=== PATIENT | female | born 1940 | race Caucasian/White ===

== ENCOUNTER → 2017-12-25 12:38 | Outpatient (CLI) | payer MEDICARE ==
[2015-05-21 09:25] VITALS: BMI 33.9
[~2017-12-25 12:38] MED LIST: ACETAMINOPHEN500 M1 PO; AZOR 10-40 MG T1 TAB PO; CALAN120 MG PO; COUMADIN5 MG PO; DIPHEDRYL25 MG PO; HYDROCODONE-APA1 TAB PO; LOVASTATIN40 MG PO; MELATONIN 3 MG1 TAB PO; MOBIC7.5 MG PO; PROPAFENONE HC300 MG PO; TENORMIN25 MG PO; TRAZODONE HCL50 MG PO; ZANTAC150 MG PO
== END | disposition home or self-care (01) ==
LOC: D.RAD 12:38
DX: R13.10 Dysphagia, unspecified (principal); K21.9 Gastro-esophageal reflux disease without esophagitis